=== PATIENT | male | born 1930 | race Caucasian/White ===

== ENCOUNTER 2018-06-15 07:19 | Day surgery (SDC) | payer MEDICARE ==
[2018-06-15] MEDS ORDERED: NACL 0.9% 500 ML 500 ML IV SCH (08:00)
[2018-06-15] MEDS ORDERED: ECOTRIN PO ONE (08:30)
[2018-06-15 08:40] VITALS: BP 133/65
== END 2018-06-15 09:30 | disposition home or self-care (01) ==
LOC: CATHLABREC 07:19
PROVIDERS: ATTEND Internal Medicine
DX: R93.1 Abnormal findings on diagnostic imaging of heart and coronary circulation (principal); I50.9 Heart failure, unspecified; I11.0 Hypertensive heart disease with heart failure; K21.9 Gastro-esophageal reflux disease without esophagitis; Z53.8 Procedure and treatment not carried out for other reasons; Z79.899 Other long term (current) drug therapy; Z98.42 Cataract extraction status, left eye; Z98.41 Cataract extraction status, right eye; Z91.81 History of falling
CPT/HCPCS: 93005; 93010; J7040

== ENCOUNTER 2018-11-28 10:53 | Inpatient (IN) | payer MEDICARE ==
[2018-11-28] MEDS ORDERED: ZOFRAN IV PRN ×2 (11:10→14:43)
[2018-11-28] MEDS ORDERED: SUBLIMAZE IV PRN (11:10)
[2018-11-28 12:44] LABS: Basophils % (Auto) 0.3 % (0.0-1.8); Eosinophils # (Auto) 0.1 K/mm3 (0.0-0.4); Hematocrit 45.8 % (35.5-45.6); Hemoglobin 15.7 gm/dl (11.8-15.2); Lymphocytes # (Auto) 1.8 K/mm3 (1.2-5.4); Lymphocytes % (Auto) 26.6 % (13.4-35.0); Mean Corpuscular HGB Conc 34 % (32-34); Mean Corpuscular Volume 96 fl (84-94); Monocytes # (Auto) 0.4 K/mm3 (0.0-0.8); Monocytes % (Auto) 6.1 % (0.0-7.3); Platelet Count 251 K/mm3 (140-440); Red Blood Count 4.77 M/mm3 (3.65-5.03)
[2018-11-28] MEDS: LACTATED RINGERS 1,000 ML IV SCH (12:45)
[2018-11-28 12:53] LABS: INR 0.88 (0.87-1.13)
[2018-11-28 13:03] LABS: Alanine Aminotransferase 25 units/L (7-56); Albumin 4.4 g/dL (3.9-5); BUN/Creatinine Ratio 21; Blood Urea Nitrogen 17 mg/dL (9-20); Calcium 10.1 mg/dL (8.4-10.2); Hemolysis Index 21
[2018-11-28] MEDS ORDERED: ANCEF/STERILE WATER 2 GM/20 ML IV NR (13:15)
--- NOTE | 2018-11-28 13:44 | Anesthesia Consultation ---
Anesthesia Consult and Med Hx Date of service: 11/28/18 - Airway Anesthetic Teeth Evaluation: Partials ROM Head & Neck: Adequate Mental/Hyoid Distance: Adequate Mallampati Class: Class II Intubation Access Assessment: Probably Good - Pulmonary Exam CTA: Yes - Cardiac Exam Cardiac Exam: RRR - Pre-Operative Health Status ASA Pre-Surgery Classification: ASA3 Proposed Anesthetic Plan: General - Pulmonary Hx Smoking: No Hx Respiratory Symptoms: No Hx Sleep Apnea: No (JULIÁN PRE SCREEN HIGH RISK.) - Cardiovascular System Hx Hypertension: Yes (took antihypertesives this morning. ) Hx Coronary Artery Disease: Yes (abnormal stress test; unclear if 2/2 CAD) Hx Heart Attack/AMI: No Hx Percutaneous Transluminal Coronary Angioplasty (PTCA): No Hx Cardia Arrhythmia: No - Central Nervous System CVA: Yes (noted in cardiac records however family denies) Hx Back Pain: Yes Hx Psychiatric Problems: No - Gastrointestinal Hx Gastroesophageal Reflux Disease: Yes (well controlled) - Endocrine Hx Renal Disease: No Hx Liver Disease: No Hx Insulin Dependent Diabetes: No Hx Non-Insulin Dependent Diabetes: No Hx Thyroid Disease: No - Hematic Hx Anemia: Yes - Other Systems Hx Obesity: No - Additional Comments Anesthesia Medical History Comments: No hx anesthetic complications. Recently had abnormal stress test concerning for coronary artery disease but family declined LHC. No chest pain or anginal equivalent symptoms. >4mets functional capacity. Normal EF on ST and TTE w/ mild and RVSP 54 mmHg.
--- NOTE | 2018-11-28 13:44 | Anesthesia Day of Surgery ---
Anesthesia Day of Surgery - Day of Surgery Patient Examined: Yes Patient H&P Reviewed: Yes Patient is NPO: Yes Beta Blockers: Yes Cardiac Clearance: Yes
[2018-11-28] MEDS ORDERED: PERCOCET 5/325 PO PRN (14:43)
[2018-11-28] MEDS ORDERED: TYLENOL PO PRN (14:43)
[2018-11-28] MEDS ORDERED: AMBIEN PO PRN (14:43)
[2018-11-28] MEDS ORDERED: ANCEF/NS 1 GM/50 ML 1 GM/50 ML BAG IV SCH (15:00)
[2018-11-28] MEDS ORDERED: ROBINUL ONE (16:00)
[2018-11-28] MEDS ORDERED: XYLOCAINE MPF 2% ONE (16:23)
[2018-11-28] MEDS ORDERED: SUBLIMAZE ONE (16:24)
[2018-11-28] MEDS ORDERED: DIPRIVAN 10 MG/ML IV ONE (16:24)
--- NOTE | 2018-11-28 17:42 | Post Operative Note ---
Date of procedure: 11/28/18 Pre-op diagnosis: urinary retention Post-op diagnosis: same Findings: bph Procedure: turp Anesthesia: GETA Surgeon: DUANE COWAN Estimated blood loss: minimal Pathology: list (prostate) Specimen disposition: to lab Condition: stable Disposition: PACU
[2018-11-28] MEDS ORDERED: FLOMAX PO SCH (18:00)
[2018-11-28] MEDS: APRESOLINE IV PRN (18:02)
[2018-11-28] MEDS ORDERED: DILAUDID IV PRN (18:02)
[2018-11-28] MEDS ORDERED: NACL 0.9% ONE (18:17)
[2018-11-28] MEDS ORDERED: DILAUDID ONE (18:20)
[2018-11-28] MEDS ORDERED: APRESOLINE ONE (18:20)
--- NOTE | 2018-11-28 19:03 | Fluoroscopy Report ---
INTRAOPERATIVE FLUOROSCOPY: CYSTOGRAM INDICATION / CLINICAL INFORMATION: BPH; ENLARGED PROSTATE. TECHNIQUE: Intraoperative spot images were obtained during the procedure. Identity contrast was injected into th e urinary bladder through an indwelling Lozano catheter. FINDINGS: Preinjection image demonstrates no definite lower urinary tract stones. Urinary bladder is moderately distended. No bladder diverticula or trabeculation noted. No extralumin al contrast. No vesicoureteral reflux. Fluoroscopy Time: 0.1 minutes. Fluoroscopy Images: 3. Signer Name: Kelley Yoder MD Signed: 11/28/2018 6:58 PM Workstation Name: [id number]
[2018-11-28] MEDS: COLACE PO SCH (21:18)
[2018-11-28] MEDS: NACL 0.9% IR SCH ×6 (21:40→23:18)
--- NOTE | 2018-11-28 22:05 | Operative Report ---
PREOPERATIVE DIAGNOSIS: Urinary retention, large middle lobe, elderly gentleman. POSTOPERATIVE DIAGNOSIS: Urinary retention, large middle lobe, elderly gentleman. PROCEDURE: Cystoscopy, transurethral resection of prostate. SURGEON: Dr. Jones. ANESTHESIA: General. FINDINGS: This is a gentleman who is 88 who is having trouble urinating. He had a catheter. He was kept going into retention. He now presents for transurethral resection of prostate. DESCRIPTION OF PROCEDURE: The patient was brought to the operating room and placed on the operating table. Following induction of anesthesia, placed in lithotomy position, prepped and draped in usual sterile fashion. Prominent middle lobe from his left side was obstructing the ____ valve of the urethra. This was resected. It was covering the left trigone and careful attention was made to circumferentially resected and not injured the trigone or the orifice. The lateral lobes were resected, but there were in terms of the lateral lobes, minimal amount of tissue. This was mostly ____ nodule right at the bladder neck. The patient tolerated the procedure well. It was wide open. Area was cauterized. We used the bipolar throughout the case. We used the resectoscope loop and the button. The patient tolerated the procedure well and brought to recovery in stable condition. Minimal blood loss. A 3-way 22 catheter was placed in the bladder under fluoroscopic guidance in good position. Brought to recovery in stable condition, family notified. JOB# [id number] BRIGITTE/ALEXANDER
[2018-11-29] MEDS: LACTATED RINGERS 1,000 ML IV SCH
[2018-11-29] MEDS: NACL 0.9% IR SCH ×11 (00:13→09:04)
[2018-11-29] MEDS: APRESOLINE IV PRN (00:26)
[2018-11-29] MEDS ORDERED: ANCEF/NS 1 GM/50 ML 1 GM/50 ML BAG IV SCH (06:00)
--- NOTE | 2018-11-29 07:09 | Post Anesthesia Evaluation ---
- Post Anesthesia Evaluation Patient Participated: Yes Airway Patent: Yes Stable Respiratory Function: Yes Nausea/Vomiting: No Temp > 96.8F: Yes Pain Manageable: Yes Adequeate Hydration: Yes Anesthesia Complications: No Block Receding Appropriately: Not Applicable Patient on Ventilator: No
[2018-11-29] MEDS ORDERED: TYLENOL PO PRN (07:28)
--- NOTE | 2018-11-29 07:36 | Consultation ---
History of Present Illness - Reason for Consult Consult date: 11/28/18 Medical management Requesting physician: DUANE COWAN - History of Present Illness S/p TURP--doing well No post opcomplications Past History Past Medical History: heart failure, hypertension, hyperlipidemia, other (ibs and BPH) Past Surgical History: TURP Social history: lives with family, full code Family history: hypertension Medications and Allergies Allergies Allergy/AdvReac Type Severity Reaction Status Date / Time No Known Allergies Allergy Verified 06/15/18 07:35 Home Medications Medication Instructions Recorded Confirmed Last Taken Type Acetaminophen [Tylenol] 500 mg PO Q6HR PRN 03/10/18 11/24/18 Unknown History Aspirin [Adult Aspirin] 81 mg PO DAILY 03/10/18 11/28/18 11/21/18 09:00 History Folic Acid/Vit B Comp W-C [Renal 1 cap PO QDAY 03/10/18 11/24/18 06/14/18 Histo ry Caps] Gabapentin [Neurontin] 300 mg PO BID 03/10/18 11/28/18 11/24/18 09:00 History Hydralazine HCl 50 mg PO TID 03/10/18 11/28/18 11/28/18 07:00 History raNITIdine HCl [Zantac 150 MG TAB] 150 mg PO BID 03/10/18 11/28/18 11/27/18 21:00 History Carvedilol [Coreg] 12.5 mg PO BID 06/15/18 11/28/18 11/27/18 09:00 History Furosemide [Lasix] 20 mg PO QDAY 11/24/18 11/24/18 Unknown History Linaclotide [Linzess] 145 mcg PO QDAY 11/24/18 11/24/18 Unknown History Lisinopril/Hydrochlorothiazide 1 each PO DAILY 11/24/18 11/24/18 Unknown History [Zestoretic 10-12.5 mg Tablet] NIFEdipine [Adalat cc] 90 mg PO DAILY 11/24/18 11/28/18 11/28/18 07:00 History Omeprazole 40 mg PO DAILY 11/24/18 11/24/18 Unknown History [place] Caps 1 cap PO DAILY 11/24/18 11/24/18 Unknown History Simvastatin 20 mg PO QHS 11/24/18 11/24/18 Unknown History Tamsulosin [Flomax] 0.4 mg PO QDAY 11/24/18 11/28/18 11/27/18 21:00 History traZODone [Desyrel] 50 mg PO QHS 11/24/18 11/28/18 10/10/18 09:00 History Active Meds: Active Medications Acetaminophen (Tylenol) 650 mg PO Q4H PRN PRN Reason: Pain, Mild (1-3)/Fever > 100.5 Acetaminophen (Tylenol) 500 mg PO Q6HR PRN PRN Reason: Pain, Moderate (4-6) Aspirin (Halfprin Ec) 81 mg PO DAILY PENDING SALE TO [facility] Carvedilol (Coreg) 12.5 mg PO BID PENDING SALE TO [facility] Docusate Sodium (Colace) 100 mg PO BID PENDING SALE TO [facility] Last Admin: 11/28/18 21:18 Dose: 100 mg Documented by: Fentanyl (Sublimaze) 50 mcg IV Q5MIN PRN PRN Reason: Pain , Severe (7-10) Furosemide (Lasix) 20 mg PO QDAY PENDING SALE TO [facility] Gabapentin (Neurontin) 300 mg PO BID PENDING SALE TO [facility] Hydralazine HCl (Apresoline) 5 mg IV Q10MIN PRN PRN Reason: Hypertension Last Admin: 11/29/18 00:26 Dose: 5 mg Documented by: Hydromorphone HCl (Dilaudid) 0.25 mg IV Q10M PRN PRN Reason: Pain , Severe (7-10) Lactated Ringer's (Lactated Ringers) 1,000 mls @ 100 mls/hr IV DIRECT SAMANTHA Last Admin: 11/29/18 00:00 Dose: 100 mls/hr Documented by: Cefazolin Sodium (Ancef/Ns 1 Gm/50 Ml) 1 gm in 50 mls @ 100 mls/hr IV Q8H PENDING SALE TO [facility]; Protocol Stop: 11/30/18 06:29 Last Admin: 11/29/18 07:02 Dose: 100 mls/hr Documented by: Miscellaneous Medication (Hydralazine Hcl [Hydralazine Hcl]) 50 mg PO TID PENDING SALE TO [facility] Miscellaneous Medication (Linaclotide [Linzess]) 145 mcg PO QDAY PENDING SALE [facility] Miscellaneous Medication (Lisinopril/Hydrochlorothiazide [Zestoretic 10-12.5 Mg Tablet]) 1 each PO DAILY PENDING SALE TO [facility] Miscellaneous Medication (Nifedipine [Adalat Cc]) 90 mg PO DAILY PENDING SALE TO [facility] Miscellaneous Medication (Omeprazole [Omeprazole]) 40 mg PO DAILY PENDING SALE TO [facility] Miscellaneous Medication (Ranitidine Hcl [Zantac]) 150 mg PO BID PENDING SALE TO [facility] Miscellaneous Medication ([place] Caps) 1 cap PO DAILY PENDING SALE TO [facility] Miscellaneous Medication (Simvastatin [Simvastatin]) 20 mg PO QHS PENDING SALE TO [facility] Ondansetron HCl (Zofran) 4 mg IV Q8H PRN PRN Reason: Nausea And Vomiting Oxycodone/Acetaminophen (Percocet 5/325) 2 tab PO Q6H PRN PRN Reason: Pain, Moderate (4-6) Last Admin: 11/28/18 21:17 Dose: 2 tab Documented by: Sodium Chloride (Nacl 0.9%) 2,000 ml IR DIRECT SAMANTHA Last Admin: 11/29/18 05:57 Dose: 2,000 ml Documented by: Tamsulosin HCl (Flomax) 0.4 mg PO QPM PENDING SALE TO [facility] Last Admin: 11/28/18 21:18 Dose: 0.4 mg Documented by: Trazodone HCl (Desyrel) 50 mg PO QHS PENDING SALE TO [facility] Zolpidem Tartrate (Ambien) 5 mg PO QHS PRN PRN Reason: Sleep Last Admin: 11/28/18 21:18 Dose: 5 mg Documented by: Review of Systems All systems: negative Exam - Constitutional Vitals: Temp Pulse Resp BP Pulse Ox 96.7 F L 58 L 7 L 165/68 97 11/29/18 05:01 11/29/18 05:01 11/29/18 05:01 11/29/18 05:01 11/29/18 05:01 General appearance: Present: no acute distress, well-nourished - EENT Eyes: Present: PERRL ENT: hearing intact, clear oral mucosa - Neck Neck: Present: supple, normal ROM - Respiratory Respiratory effort: normal Respiratory: bilateral: CTA - Cardiovascular Heart rate: 78 Rhythm: regular Heart Sounds: Present: S1 & S2. Absent: rub, click - Extremities Extremities: no ischemia, pulses intact, pulses symmetrical, No edema Peripheral Pulses: within normal limits - Abdominal General gastrointestinal: Present: soft, non-tender, non-distended, normal bowel sounds Male genitourinary: Present: normal - Rectal Rectal Exam: deferred - Integumentary Integumentary: Present: clear, warm, dry - Musculoskeletal Musculoskeletal: gait normal, strength equal bilaterally - Psychiatric Psychiatric: appropriate mood/affect, intact judgment & insight - Neurologic Neurologic: CNII-XII intact, moves all extremities - Allied Health Allied health notes reviewed: nursing, case management Results - Labs CBC & Chem 7: 11/28/18 12:25 11/28/18 12:25 Labs: Abnormal lab results 11/28/18 11/28/18 11/28/18 Range/Units 12:16 12:25 12:25 Hgb 15.7 H (11.8-15.2) gm/dl Hct 45.8 H (35.5-45.6) % MCV 96 H (84-94) fl MCH 33 H (28-32) pg RDW 13.0 L (13.2-15.2) % PT 11.7 L (12.2-14.9) Sec. POC Sodium 136 L (138-146) mmol/L POC Chloride 113 H (98-109) Short CBC 11/28/18 Range/Units 12:25 WBC 6.8 (4.5-11.0) K/mm3 Hgb 15.7 H (11.8-15.2) gm/dl Hct 45.8 H (35.5-45.6) % Plt Count 251 (140-440) K/mm3 BMP 11/28/18 12:25 Sodium 142 Potassium 4.0 Chloride 104.1 Carbon Dioxide 25 BUN 17 Creatinine 0.8 Glucose 93 Calcium 10.1 Liver Function 11/28/18 Range/Units 12:25 Total Bilirubin 0.50 (0.1-1.2) mg/dL AST 26 (5-40) units/L ALT 25 (7-56) units/L Alkaline Phosphatase 88 (35-129) units/L Albumin 4.4 (3.9-5) g/dL Assessment and Plan - Patient Problems (1) S/P TURP Current Visit: Yes Status: Acute Plan to address problem: Post op doing well (2) HTN (hypertension) Current Visit: No Status: Chronic Qualifiers: Hypertension type: essential hypertension Qualified Code(s): I10 - Essential (primary) hypertension Plan to address problem: Cont antihypertensives Meds reconciled (3) Hyperlipidemia Current Visit: No Status: Chronic Qualifiers: Hyperlipidemia type: mixed hyperlipidemia Qualified Code(s): E78.2 - Mixed hyperlipidemia Plan to address problem: Cont statins (4) CHF (congestive heart failure) Current Visit: Yes Status: Chronic Qualifiers: Heart failure type: combined systolic and diastolic Heart failure chronicity: chronic Qualified Code(s): I50.42 - Chronic combined systolic (congestive) and diastolic (congestive) heart failure Plan to address problem: Cont Diuretics (5) IBS (irritable bowel syndrome) Current Visit: Yes Status: Chronic Qualifiers: Irritable bowel syndrome type: unspecified Qualified Code(s): K58.9 - Irritable bowel syndrome without diarrhea Plan to address problem: Cont Linzess (6) BPH (benign prostatic hyperplasia) Current Visit: Yes Status: Chronic Qualifiers: Lower urinary tract symptom presence: symptoms present Plan to address problem: Had Turp No need for Flomax (7) DVT prophylaxis Current Visit: Yes Status: Acute Plan to address problem: On scd's and Gi prophylaxis
[2018-11-29] MEDS ORDERED: NON-FORMULARY (Hydralazine Hcl [Hydralazine Hcl] 50 MG) PO SCH (08:00)
[2018-11-29] MEDS ORDERED: LASIX PO SCH (08:00)
[2018-11-29] MEDS: APRESOLINE PO SCH ×2 (09:05→13:15)
[2018-11-29] MEDS: COLACE PO SCH (09:05)
[2018-11-29] MEDS ORDERED: Renal Caps PO SCH (10:00)
[2018-11-29] MEDS ORDERED: NON-FORMULARY (Nifedipine [Adalat Cc] 90 MG) PO SCH (10:00)
[2018-11-29] MEDS ORDERED: RENO PO SCH (10:00)
[2018-11-29] MEDS ORDERED: NON-FORMULARY (Lisinopril/Hydrochlorothiazide [Zestoretic 10-12.5 Mg Tablet] 1 EACH) PO SCH (10:00)
[2018-11-29] MEDS ORDERED: ZESTRIL PO SCH (10:00)
[2018-11-29] MEDS ORDERED: PROTONIX PO SCH (10:00)
[2018-11-29] MEDS ORDERED: COREG PO SCH ×2 (10:00)
[2018-11-29] MEDS ORDERED: NON-FORMULARY (Omeprazole [Omeprazole] 40 MG) PO SCH (10:00)
[2018-11-29] MEDS ORDERED: NON-FORMULARY (Linaclotide [Linzess] 145 MCG) PO SCH (10:00)
[2018-11-29] MEDS ORDERED: PROCARDIA XL PO SCH (10:00)
[2018-11-29] MEDS ORDERED: HALFPRIN EC PO SCH (10:00)
[2018-11-29] MEDS ORDERED: NON-FORMULARY (Ranitidine Hcl [Zantac] 150 MG) PO SCH (10:00)
[2018-11-29] MEDS ORDERED: HCTZ PO SCH (10:00)
[2018-11-29] MEDS ORDERED: NEURONTIN PO SCH (10:00)
[2018-11-29 12:36] VITALS: BP 174/65
--- NOTE | 2018-11-29 12:37 | Progress Note ---
Assessment and Plan mild constipation urine clear home today Subjective Date of service: 11/29/18 Principal diagnosis: aur Objective - Constitutional Vitals: Vital Signs - 12hr 11/29/18 11/29/18 11/29/18 05:01 07:38 11:56 Temperature 96.7 F L 98.0 F 97.6 F Pulse Rate 58 L 54 L 53 L Respiratory 7 L 18 18 Rate Blood Pressure 165/68 149/64 174/65 O2 Sat by Pulse 97 96 93 Oximetry General appearance: Present: no acute distress - Respiratory Respiratory effort: normal Extremities: no ischemia - Gastrointestinal General gastrointestinal: Present: soft, non-tender - Labs CBC & Chem 7: 11/28/18 12:25 11/28/18 12:25 Labs: Abnormal lab results 11/28/18 11/28/18 Range/Units 12:25 12:25 Hgb 15.7 H (11.8-15.2) gm/dl Hct 45.8 H (35.5-45.6) % MCV 96 H (84-94) fl MCH 33 H (28-32) pg RDW 13.0 L (13.2-15.2) % PT 11.7 L (12.2-14.9) Sec. Medications & Allergies - Medications Allergies/Adverse Reactions: Allergies No Known Allergies Allergy (Verified 06/15/18 07:35) Home Medications: Home Medications Medication Instructions Recorded Confirmed Last Taken Type Acetaminophen [Tylenol] 500 mg PO Q6HR PRN 03/10/18 11/24/18 Unknown History Aspirin [Adult Aspirin] 81 mg PO DAILY 03/10/18 11/28/18 11/21/18 09:00 History Folic Acid/Vit B Comp W-C [Renal 1 cap PO QDAY 03/10/18 11/24/18 06/14/18 History Caps] Gabapentin [Neurontin] 300 mg PO BID 03/10/18 11/28/18 11/24/18 09:00 History Hydralazine HCl 50 mg PO TID 03/10/18 11/28/18 11/28/18 07:00 History raNITIdine HCl [Zantac 150 MG TAB] 150 mg PO BID 03/10/18 11/28/18 11/27/18 21:00 History Carvedilol [Coreg] 12.5 mg PO BID 06/15/18 11/28/1811/27/19 09:00 History Furosemide [Lasix] 20 mg PO QDAY 11/24/18 11/24/18 Unknown History Linaclotide [Linzess] 145 mcg PO QDAY 11/24/18 11/24/18 Unknown History Lisinopril/Hydrochlorothiazide 1 each PO DAILY 11/24/18 11/24/18 Unknown History [Zestoretic 10-12.5 mg Tablet] NIFEdipine [Adalat cc] 90 mg PO DAILY 11/24/18 11/28/18 11/28/18 07:00 History Omeprazole 40 mg PO DAILY 11/24/18 11/24/18 Unknown History Abbe Caps 1 cap PO DAILY 11/24/18 11/24/18 Unknown History Simvastatin 20 mg PO QHS 11/24/18 11/24/18 Unknown History Tamsulosin [Flomax] 0.4 mg PO QDAY 11/24/18 11/28/18 11/27/18 21:00 History traZODone [Desyrel] 50 mg PO QHS 11/24/18 11/28/18 10/10/18 09:00 History Active Medications: Generic Name Dose Route Start Last Admin Trade Name Freq PRN Reason Stop Dose Admin Acetaminophen 650 mg 11/28/18 14:43 Tylenol PO Q4H PRN Pain, Mild (1-3)/Fever > 100.5 Acetaminophen 500 mg 11/29/18 07:28 Tylenol PO Q6HR PRN Pain, Moderate (4-6) Aspirin 81 mg 11/29/18 10:00 11/29/18 09:05 Halfprin Ec PO 81 mg DAILY SAMANTHA Administration Carvedilol 12.5 mg 11/29/18 10:00 11/29/18 09:05 Coreg PO 12.5 mg BID SAMANTHA Administration Docusate Sodium 100 mg 11/28/18 22:00 11/29/18 09:05 Colace PO 100 mg BID SAMANTHA Administration Fentanyl 50 mcg 11/28/18 11:10 Sublimaze IV Q5MIN PRN Pain , Severe (7-10) Furosemide 20 mg 11/29/18 08:00 11/29/18 09:05 Lasix PO 20 mg DAILY@0600 SAMANTHA Administration Gabapentin 300 mg 11/29/18 10:00 11/29/18 09:05 Neurontin PO 300 mg BID SAMANTHA Administration Hydralazine HCl 5 mg 11/28/18 18:23 11/29/18 00:26 Apresoline IV 5 mg Q10MIN PRN Administration Hypertension Hydralazine HCl 50 mg 11/29/18 08:00 11/29/18 09:05 Apresoline PO 50 mg Q8HR SAMANTHA Administration Hydrochlorothiazide 12.5 mg 11/29/18 10:00 11/29/18 09:05 Hctz PO 12.5 mg QDAY SAMANTHA Administration Hydromorphone HCl 0.25 mg 11/28/18 18:02 Dilaudid IV Q10M PRN Pain , Severe (7-10) Lactated Ringer's 1,000 mls @ 100 mls/hr 11/28/18 12:00 11/29/18 00:00 Lactated Ringers IV 100 mls/hr DIRECT SAMANTHA Administration Cefazolin Sodium 1 gm in 50 mls @ 100 mls/hr 11/29/18 06:00 11/29/18 07:02 Ancef/Ns 1 Gm/50 Ml IV 11/30/18 06:29 100 mls/hr Q8H SAMANTHA Administration Protocol Lisinopril 10 mg 11/29/18 10:00 11/29/18 09:05 Zestril PO 10 mg QDAY SAMANTHA Administration Miscellaneous Medication 145 mcg 11/29/18 10:00 Linaclotide [Linzess] PO QDAY SAMANTHA Multivit/Ca Carb/B Cmplx/FA/Prenat 1 cap 11/29/18 10:00 Renal Caps PO QDAY SAMANTHA Nifedipine 90 mg 11/29/18 10:00 Procardia Xl PO QDAY SAMANTHA Ondansetron HCl 4 mg 11/28/18 14:43 Zofran IV Q8H PRN Nausea And Vomiting Oxycodone/Acetaminophen 2 tab 11/28/18 14:43 11/28/18 21:17 Percocet 5/325 PO 2 tab Q6H PRN Administration Pain, Moderate (4-6) Pantoprazole Sodium 40 mg 11/29/18 10:00 11/29/18 09:05 Protonix PO 40 mg DAILY SAMANTHA Administration Pravastatin Sodium 20 mg 11/29/18 22:00 Pravachol PO QHS SAMANTHA Sodium Chloride 2,000 ml 11/28/18 22:00 11/29/18 09:04 Nacl 0.9% IR 2,000 ml DIRECT SAMANTHA Administration Tamsulosin HCl 0.4 mg 11/28/18 18:00 11/28/18 21:18 Flomax PO 0.4 mg QPM SAMANTHA Administration Trazodone HCl 50 mg 11/29/18 22:00 Desyrel PO QHS SAMANTHA Zolpidem Tartrate 5 mg 11/28/18 14:43 11/28/18 21:18 Ambien PO 5 mg QHS PRN Administration Sleep
--- NOTE | 2018-11-29 12:38 | Discharge Summary ---
Short Stay Discharge Plan Activity: other (no straining ) Weight Bearing Status: Partial Weight Bearing Diet: low fat, low cholesterol, low salt Durable Medical Equipment Needed Upon Discharge: other ([facility] ) Follow up with: DUANE COWAN MD [Staff Physician] - 7 Days (wednesday at 09:00 am ) TACO CAMARENA MD [Primary Care Provider] - 7 Days
--- NOTE | 2018-11-29 13:25 | Progress Note ---
Assessment and Plan (1) S/P TURP Current Visit: Yes Status: Acute Plan to address problem: Post op doing well (2) HTN (hypertension) Current Visit: No Status: Chronic Qualifiers: Hypertension type: essential hypertension Qualified Code(s): I10 - Essential (primary) hypertension Plan to address problem: Cont antihypertensives Meds reconciled (3) Hyperlipidemia Current Visit: No Status: Chronic Qualifiers: Hyperlipidemia type: mixed hyperlipidemia Qualified Code(s): E78.2 - Mixed hyperlipidemia Plan to address problem: Cont statins (4) CHF (congestive heart failure) Current Visit: Yes Status: Chronic Qualifiers: Heart failure type: combined systolic and diastolic Heart failure chronicity: chronic Qualified Code(s): I50.42 - Chronic combined systolic (congestive) and diastolic (congestive) heart failure Plan to address problem: Cont Diuretics (5) IBS (irritable bowel syndrome) Current Visit: Yes Status: Chronic Qualifiers: Irritable bowel syndrome type: unspecified Qualified Code(s): K58.9 - Irritable bowel syndrome without diarrhea Plan to address problem: Cont Linzess Subjective Date of service: 11/29/18 Principal diagnosis: aur Interval history: Patient seen and examined Plannned for d/c today discussed with and the RN at bedside Objective - Constitutional Vitals: Vital Signs - 12hr 11/29/18 11/29/18 11/29/18 05:01 07:38 11:56 Temperature 96.7 F L 98.0 F 97.6 F Pulse Rate 58 L 54 L 53 L Respiratory 7 L 18 18 Rate Blood Pressure 165/68 149/64 174/65 O2 Sat by Pulse 97 96 93 Oximetry 11/29/18 13:15 Temperature Pulse Rate Respiratory Rate Blood Pressure 174/65 O2 Sat by Pulse Oximetry General appearance: Present: no acute distress, well-nourished - EENT Eyes: PERRL, EOM intact ENT: hearing intact, clear oral mucosa Ears: bilateral: normal - Neck Neck: supple, normal ROM - Respiratory Respiratory effort: normal Respiratory: bilateral: CTA - Cardiovascular Rhythm: regular Heart Sounds: Present: S1 & S2. Absent: gallop, rub Extremities: pulses intact, No edema, normal color, Full ROM - Gastrointestinal General gastrointestinal: Present: soft, non-tender, non-distended, normal bowel sounds - Integumentary Integumentary: clear, warm, dry - Musculoskeletal Musculoskeletal: 1, strength equal bilaterally - Neurologic Neurologic: moves all extremities - Psychiatric Psychiatric: memory intact, appropriate mood/affect, intact judgment & insight - Labs CBC & Chem 7: 11/28/18 12:25 11/28/18 12:25
[2018-11-29] MEDS ORDERED: NON-FORMULARY (Simvastatin [Simvastatin] 20 MG) PO SCH (22:00)
[2018-11-29] MEDS ORDERED: PRAVACHOL PO SCH (22:00)
[2018-11-29] MEDS ORDERED: DESYREL PO SCH (22:00)
== END 2018-11-29 16:00 | disposition home health service (06) | DRG 713 ==
LOC: EDSTATUS 12:45 → 3B-SURG 19:44
PROVIDERS: ADMIT Urology; ATTEND Internal Medicine
PROC: 0VT08ZZ Resection of Prostate, Via Natural or Artificial Opening Endoscopic (ICD-10-PCS; principal; 2018-11-28)
PROC: BT1B1ZZ Fluoroscopy of Bladder and Urethra using Low Osmolar Contrast (ICD-10-PCS; 2018-11-28)
DX: N40.1 Benign prostatic hyperplasia with lower urinary tract symptoms (principal); I50.42 Chronic combined systolic (congestive) and diastolic (congestive) heart failure; I11.0 Hypertensive heart disease with heart failure; E78.2 Mixed hyperlipidemia; K58.9 Irritable bowel syndrome, unspecified; I25.10 Atherosclerotic heart disease of native coronary artery without angina pectoris; K21.9 Gastro-esophageal reflux disease without esophagitis; R39.12 Poor urinary stream; K59.00 Constipation, unspecified; Z79.899 Other long term (current) drug therapy; Z82.49 Family history of ischemic heart disease and other diseases of the circulatory system; Z79.82 Long term (current) use of aspirin
CPT/HCPCS: 36415; 51600; 74430; 80053; 82803; 85025; 85610; 85730; 86850; 86900; 86901; 88305; G0378; A4217; J0360; J0690; J1170; J2704; J3010; J7120; Q9967